=== PATIENT | female | born 2000 | race Caucasian/White ===

== ENCOUNTER 2023-09-11 14:08 | Emergency (ER) | payer OTHER, SELFPAY ==
[2023-09-11 14:16] VITALS: BP 138/82
[2023-09-11 15:45] VITALS: BP 132/87
--- NOTE | 2023-09-11 16:44 | ED.GENMED ---
History of Present Illness
General
Chief Complaint: Head Injury
Source: patient
Exam Limitations: none
Time Seen by Provider: 09/11/23 15:11
Nursing documentation reviewed up to this point in time: agreed with
Travel History
Have you had any contact with someone who has COVID-19?: No
Do you have any symptoms of coronavirus? Fever > 100 degrees, chills, cough, shortness of breath, sore throat, loss of taste or smell, muscle aches, or headache?: No
History of Present Illness
History of Present Illness:
22-year-old female with no significant past medical history states 4 evenings ago she fell off a 4 foot kitchen stool, fell backward and hit the back of her head on the hard back edge of a sofa. There is no LOC. She states for the whole next day
there was soreness at the site but no general headache. She states 2 days ago she developed a generalized headache 6/10 and took Advil with no help. She is also had 'a little dizziness.' The headache has remained, she has had no nausea or
vomiting, no changes in vision other than mild photophobia. She has a little pressure in both her ears.
Past History
Past History
ED Past Medical History: None and Psychiatric (Anxiety, takes citalopram)
ED Past Surgical History: Other ([place] teeth)
Social History
Tobacco: Non-smoker
Alcohol: None
Drug: None
Personal: Single
Living: with family
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
Review of Systems
Review of Systems
Allergies reviewed?: Yes
All Other Systems: ROS reviewed and negative except as documented in HPI and ROS
Constitutional: Denies fatigue
Respiratory: Denies trouble breathing
Cardiac: Denies chest pain or syncope
ABD/GI: Denies abdominal pain, nausea or vomiting
Musculoskeletal: Denies neck pain or back pain
Skin: Reports no symptoms
Neurological: Reports headache (Generalized, 6/10, mild photophobia); Denies dizzy, weakness or numbness
Phy Exam
Physical Exam
Physical Exam:
GENERAL: No acute distress. A&Ox3.
CONSTITUTIONAL: Afebrile.
EYES: PERRL, conjunctivae normal
Neck: Supple
ENMT: moist mucus membranes, Pharynx nl, TMs normal
RESPIRATORY: Regular respirations, nonlabored, lungs clear.
CARDIOVASCULAR: Regular rate and rhythm, no murmurs, no rubs.
GI: Soft, nontender
MUSCULOSKELETAL: Moves with ease. Well perfused.
SKIN: Warm, dry, pink
PSYCH: Normal mood and affect. Well kept, interactive and appropriate
NEUROLOGIC: Awake, alert and oriented. Speech clear. No focal neurological deficits. Cranial nerves II through XII intact. Finger-nose intact. Ambulates well with steady gait.
Course
Vital Signs
Initial and Last Documented VS:
Initial Vital Signs
Temp Pulse Resp BP Pulse Ox
98.1 F 77 16 138/82 98
09/11/23 14:16 09/11/23 14:16 09/11/23 14:16 09/11/23 14:16 09/11/23 14:16
Last Documented Vital Signs
Temp Pulse Resp BP Pulse Ox
98.1 F 77 16 132/87 98
09/11/23 14:16 09/11/23 14:16 09/11/23 14:16 09/11/23 15:45 09/11/23 14:16
MDM/Problems Addressed
Differential Diagnosis Includes:
Concussion, posttraumatic headache
MDM/Problems Addressed:
22-year-old female with no significant past medical history states 4 evenings ago she fell off a 4 foot kitchen stool, fell backward and hit the back of her head on the hard back edge of a sofa. There is no LOC. She states for the whole next day
there was soreness at the site but no general headache. She states 2 days ago she developed a generalized headache 6/10 and took Advil with no help. She is also had 'a little dizziness.' The headache has remained, she has had no nausea or
vomiting, no changes in vision other than mild photophobia. She has a little pressure in both ears.
Patient is neuro exam is unremarkable. There is no loss of conscious, no focal neurological deficits, no indication for head CT, patient is comfortable with this
Reviewed instructions of concussion
Given a pamphlet for our postconcussion vestibular clinic if needed
*Critical Care Note
Total Time (30-74mins, 75-104mins- exclusive of procedures): Not Applicable
ED Attending Note
-
Portions of this chart may have been created with voice recognition software.� Occasional wrong word or��sound alike� substitutions may have occurred due to the inherent limitations of voice recognition software.
Discharge Plan
Departure
Patient Disposition: Home (Routine Discharge)
Patient with high blood pressure during this ER visit?: No
Condition: Good
Discharge Problem:
Mild concussion
Instructions: Concussion, Adult (DC)
Referrals:
Lucy Perez PA [Family Provider] - As needed
Activity Restrictions/Additional Instructions:
As we discussed, you have the symptoms of mild concussion. If you are not 100% better in 1 week you can make an appointment with the postconcussion clinic, information is on the pamphlet that I gave you.
Interventions
Interventions:
*Risk Screen - Suicide Last Done: 09/11/23 15:42
*General Assessment Last Done: 09/11/23 15:41
*Neglect/Abuse Screening Last Done: 09/11/23 15:42
*ED COVID-19 Vaccine History Last Done: 09/11/23 14:16
*Nursing Disposition Last Done: 09/11/23 15:45
ED- Neurological Assessment Last Done: 09/11/23 15:43
ED-Skin Assessment Last Done: 09/11/23 15:44
Discharge Date and Time
Discharge Date/Time: 09/11/23 15:58
== END 2023-09-11 15:58 | disposition home or self-care (01) ==
LOC: EMR 14:08
PROVIDERS: EMERGENCY PHYSICIAN Emergency Medicine; FAMILY PHYSICIAN Physician Assistant Medical
DX: S06.0X0A Concussion without loss of consciousness, initial encounter (principal); W10.9XXA Fall (on) (from) unspecified stairs and steps, initial encounter
CPT/HCPCS: 99283